=== PATIENT | male | born 1945 | race Caucasian/White ===

== ENCOUNTER → 2016-05-28 | Outpatient (CLI) | payer MEDICARE, OTHER ==
--- NOTE | ~2016-05-28 | CR63 ---
[facility] A Service of [facility] RADIOLOGY TEXT RESULTS PATIENT: MICKY DE LA FUENTE JR LOCATION: [place] : 41 UNIT #: [id number] AGE: [address]: Vasu George MD SEX: M ORDER DR: [id number] [address] [id number] O MR#: [id number] Acc #: [id number] NAME: MICKY DE LA FUENTE : 1945 SEX: M STUDY DATE/TIME: 05/28/2016 8:22 UNIT: [facility] ROOM: STUDY DESCRIPTION: CR Chest 2 View Attending Physician: Vasu George M.D. Referring Physician: Vasu George M.D. Ordering Physician: Vasu George M.D. Primary Care Physician: Vasu George M.D. MEDICAL IMAGING REPORT This report is preliminary unless electronic signature is present. EXAM PA lateral chest DATE: 05/28/2016 08:22 HISTORY Annual physical examination. No current complaints. Previous smoking history, quit 30 years ago. COMPARISON PA lateral chest radiograph 06/04/2015. FINDINGS Cardiomediastinal silhouette is within normal limits. Chronic-appearing perihilar interstitial type thickening is seen within both lungs, very similar to the prior examination. No active airspace disease is identified. There is near confluent anterolateral osteophyte formation within the thoracic spine, unchanged. No acute osseous abnormality. No pleural effusion or pneumothorax. IMPRESSION No acute chest findings. No significant change from 06/04/2015. Dictated by... Juliet Dominique M.D. THIS IS AN ELECTRONICALLY VERIFIED REPORT Juliet Dominique M.D. at 05/29/2016 7:33 AM [facility]/cmisadora TD: 05/28/2016 09:57 JOB #: [id number] [facility] A Service [facility] RADIOLOGY TEXT RESULTS PATIENT: MICKY DE LA FUENTE JR LOCATION: [place] : 41 UNIT #: [id number] AGE: [address]: Vasu George MD SEX: M ORDER DR: MEDICAL IMAGING REPORT Page 1 of 1
--- NOTE | ~2016-05-28 | EKG ---
PATIENT: MICKY DE LA FUENTE UNIT #: [id number] Ventricular Rate: 78 BPM Atrial Rate: 78 BPM P-R Interval: 182 ms QRS Duration: 68 ms Q-T Interval: 352 ms QTC Calculation(Bezet): 401 ms P [place]: 69 degrees Calculated R [place]: 8 degrees Calculated T [place]: 60 degrees Diagnosis Line: Normal sinus rhythm Diagnosis Line: Normal ECG Diagnosis Line: No previous ECGs available Diagnosis Line: Confirmed by REYNALDO SEO MD ([id number]) on 06/05/2016 Diagnosis Line: 11:51:36 AM INTERPRETING MD: RAYRAY HOUSTON
[2016-05-28 09:21] LABS: ALBUMIN SERUM 4.8 g/dL (3.5-5.0); BILIRUBIN,TOTAL 0.5 mg/dL (0.2-2.0); BUN/CREATININE RATIO 18.18; CREATININE SERUM 1.1 mg/dL (0.6-1.4); GLOM FILT RATE Estimated 66.3 mL/min (>60); HEMATOCRIT 44.4 % (38.0-50.0); HEMOGLOBIN 15.1 gm/dL (13.0-16.0); MEAN CELL VOLUME 96.4 FL (83-96); MEAN CORPUSCULAR HEMOGLOBIN 32.8 PG (28-34); MEAN CORPUSCULAR HGB CONC 34.1 g/dL (30-36); MEAN PLATELET VOLUME 8.8 FL (6.5-11.5); POTASSIUM 4.6 mmol/L (3.5-5.1); RED BLOOD COUNT 4.6 X10e (3.90-5.60); RED CELL DISTRIBUTION WIDTH 12.9 % (11.0-15.5); WHITE BLOOD COUNT 11.8 X10e3 (4.0-10.5)
[2016-05-28 12:17] LABS: PROSTATE SPECIFIC AG SCR 4.1 ng/ml (0.0-4.0)
== END | disposition home or self-care (01) ==
LOC: SLAB 07:56
PROVIDERS: Internal Medicine
DX: I10 Essential (primary) hypertension (principal); E11.9 Type 2 diabetes mellitus without complications
CPT/HCPCS: 36415; 71020; 80053; 80061; 83036; 84443; 85027; 93005; G0103